=== PATIENT | female | born 1940 | race Caucasian/White ===

== ENCOUNTER 2017-01-16 15:38 | Inpatient (IN) | payer OTHER ==
[~2017-01-16] VITALS: Ht 154.9 cm; Wt 94.0 kg
[~2017-01-16 15:38] MED LIST: ASPIR-LOW81 MG PO; ASPIRIN325 MG PO; CALCIUM 500 +1 EACH PO; CEFTIN500 MG PO; CINNAMON500 MG PO; COZAAR100 MG PO; COZAAR50 MG PO; CRANBERRY 4001 EAC1 PO; Ceftin PO; ELIQUIS5 MG PO; FISH OIL SOFTG1 EACH PO; FLAXSEED OIL1000 MG PO; FUROSEMIDE40 MG PO; HUMULIN N100 UNIT/1 IM; LIPITOR80 MG PO; METFORMIN HCL500 MG PO; METOPROLOL SUC100 MG PO; MULTI-VITAMIN1 EAC4 PO; MVI-12,MULTIVI100 ML IV; NOVOLIN N100 UNITS/ SC; Neurontin PO; OMEPRAZOLE20 MG PO; OSCAL, OYSTER500 MG PO; PAXIL10 MG PO; PAXIL40 MG PO; PLAVIX75 MG PO; POTASSIUM CHLO10 MEQ PO; SIMVASTATIN40 MG PO; THERAGRAN1 TABLET PO; TOPROL XL200 MG PO; ZANTAC150 MG PO; ZETIA10 MG PO
[2017-01-16 17:48] LABS: CHLORIDE 101 mEq/L (99-109); POTASSIUM 4.2 mEq/L (3.7-5.4); SODIUM 140 mEq/L (136-147)
[2017-01-16 17:49] LABS: GLUCOSE 96 mg/dL (70-99); HEMATOCRIT 35.5 % (36.0-46.0); MCHC 33.2 G/DL (30.0-36.0); MCV 87.2 FL (83-99); MEAN PLAT.VOLUME 9.1 uM^3 (9.5-12.4); PLATELET COUNT 276 K/uL (156-360); RBC DIS.WIDTH-CV 12.4 % (11.8-14.6); RBC DIS.WIDTH-SD 39.7 % (39-53); RED BLOOD COUNT 4.07 M/uL (3.80-5.20); WHITE BLOOD COUNT 6.3 K/uL (4.1-10.2)
[2017-01-16 17:51] LABS: ANION GAP 9 MEQ/L (2-14)
[2017-01-16 17:53] LABS: GFR ESTIMATE (CALCULATED) > 59 mL/min/
[2017-01-16 17:54] LABS: UREA NITROGEN (BUN) 11 mg/dL (9-23)
[2017-01-16 17:56] LABS: TROP-I INTERPRETATION NEGATIVE; TROPONIN-I < 0.01 ng/mL (0.0-0.30)
[2017-01-16 20:03] LABS: ADD MIUA? YES; BILIRUBIN NEGATIVE; BLOOD NEGATIVE; COLOR AMBER ((YELLOW)); GLUCOSE (STRIP) NEGATIVE; KETONES 5; LEUKOCYTES TRACE; NITRITE POSITIVE; PROTEIN (STRIP) NEGATIVE; SPECIFIC GRAVITY 1.021 (1.000-1.030); UROBILINOGEN 0.2 MG/DL (0.2-1.0)
[2017-01-16 20:40] LABS: BACTERIA 4+ /HPF; EPITHELIAL CELLS 1+ /HPF; MUCUS NONE SEEN /LPF; RED BLOOD CELLS 0-5 /HPF (0-5); UCUL ADDED? YES
[2017-01-16] MEDS ORDERED: TRAZODONE HCL50 MG PO (21:59)
[2017-01-17 02:11] LABS: TROP-I INTERPRETATION NEGATIVE; TROPONIN-I < 0.01 ng/mL (0.0-0.30)
[2017-01-17 03:20] LABS: HDL CHOLESTEROL 44 MG/DL (Desirable>=50); LDL CHOLESTEROL 23 mg/dL (Desirable<100); NON-HDL CHOLESTEROL 50 mg/dL (Desirable<160); TOTAL CHOLESTEROL 94 mg/dL (Desirable<200); TRIGLYCERIDES 137 MG/DL (Normal: <150)
[2017-01-17 04:51] VITALS: BP 135/61
[2017-01-17 07:02] LABS: TROP-I INTERPRETATION NEGATIVE; TROPONIN-I < 0.01 ng/mL (0.0-0.30)
[2017-01-17 07:52] LABS: Estimated Average Glucose 160 mg/dL (70-123); HEMOGLOBIN A1c (GLYCOHEMOGLOB) 7.2 % HGB (Below 5.7)
[2017-01-17 08:00] VITALS: BP 139/80
[2017-01-17 08:40] LABS: MCH 29.3 PG (29.0-34.0); MCHC 33.5 G/DL (30.0-36.0); MCV 87.4 FL (83-99); MEAN PLAT.VOLUME 9.8 uM^3 (9.5-12.4); PLATELET COUNT 254 K/uL (156-360); RBC DIS.WIDTH-CV 12.5 % (11.8-14.6); RBC DIS.WIDTH-SD 40.1 % (39-53); RED BLOOD COUNT 3.89 M/uL (3.80-5.20); WHITE BLOOD COUNT 4.9 K/uL (4.1-10.2)
[2017-01-17 08:57] LABS: ANION GAP 7 MEQ/L (2-14); CHLORIDE 101 MEQ/L (99-109); GFR ESTIMATE (CALCULATED) > 59 mL/min/; POTASSIUM 4.3 MEQ/L (3.7-5.4); SAMPLE HEMOLYSIS CHECK 0; SAMPLE ICTERIC CHECK 0; SAMPLE LIPEMIA CHECK 0; SODIUM 140 MEQ/L (136-147); UREA NITROGEN (BUN) 12 mg/dL (9-23)
[2017-01-17 09:00] LABS: GLUCOSE 150 mg/dL (70-99)
[2017-01-17 11:45] VITALS: BP 138/77
[2017-01-17 17:18] VITALS: BP 133/63
[2017-01-17 20:13] VITALS: BP 132/60
[2017-01-18 00:49] VITALS: BP 169/70
[2017-01-18 03:45] VITALS: BP 142/62
[2017-01-18 07:38] VITALS: BP 128/69
[2017-01-18 12:12] VITALS: BP 128/64
[2017-01-18] MEDS ORDERED: CEFDINIR300 MG PO (15:36)
== END 2017-01-18 16:20 | disposition home or self-care (01) | DRG 690 ==
LOC: EME 15:38 → EDOF 01-17 01:09 → ENRESERV 01-17 01:11 → 5SOUTH 01-17 04:08
PROVIDERS: Emergency Medicine; Hospitalist; Physician Assistant Medical
DX: N39.0 Urinary tract infection, site not specified (principal); B96.20 Unspecified Escherichia coli [E. coli] as the cause of diseases classified elsewhere; R27.0 Ataxia, unspecified; R42 Dizziness and giddiness; I10 Essential (primary) hypertension; E11.9 Type 2 diabetes mellitus without complications; E78.5 Hyperlipidemia, unspecified; G31.83 Neurocognitive disorder with Lewy bodies; F02.80 Dementia in other diseases classified elsewhere, unspecified severity, without behavioral disturbance, psychotic disturbance, mood disturbance, and anxiety; G20 Parkinson's disease; I48.91 Unspecified atrial fibrillation; K21.9 Gastro-esophageal reflux disease without esophagitis; I25.10 Atherosclerotic heart disease of native coronary artery without angina pectoris; F32.9 Major depressive disorder, single episode, unspecified; E66.9 Obesity, unspecified; Z68.39 Body mass index [BMI] 39.0-39.9, adult; I25.2 Old myocardial infarction; Z95.1 Presence of aortocoronary bypass graft; Z95.5 Presence of coronary angioplasty implant and graft; Z86.73 Personal history of transient ischemic attack (TIA), and cerebral infarction without residual deficits; Z87.440 Personal history of urinary (tract) infections; Z87.442 Personal history of urinary calculi; Z79.01 Long term (current) use of anticoagulants; Z79.82 Long term (current) use of aspirin; Z23 Encounter for immunization
CPT/HCPCS: 70450; 70551; 71020; 71275; 80048; 80061; 81003; 82948; 83036; 84484; 85027; 87077; 87086 GA; 87186; 90686; 93005; 93306; 93880; 93971; 99281; 99285; J0696; J1200; J1815; J7050